=== PATIENT | female | born 1995 | race Caucasian/White ===

== ENCOUNTER 2019-08-30 23:16 | Emergency (ER) | payer OTHER ==
[2019-08-30 23:43] LABS: #Eosinphils 0.1 thou/uL (0.0-0.7); #Lymphocytes 2.4 thou/uL (1.20-3.40); #Monocytes 1.2 thou/uL (0.11-0.59); %Basophils 0.3 % (0.0-1.0); %Lymphocytes 16.2 % (21.0-51.0); %Monocytes 8.1 % (0.0-10.0); %Neutrophils 74.4 % (42.0-75.0); Hemoglobin 13.2 g/dL (12.0-16.0); Mean Corpuscular HGB CONC 34.5 g/dL (32.0-36.0); Mean Corpuscular Hemoglobin 28.8 pg (27.0-31.0); Mean Corpuscular Volume 83.7 fL (78.0-98.0); Mean Platelet Volume 7.1 fL (7.4-10.4); Platelet Count 326 thou/uL (130-400); RBC Distribution Width 11.8 % (11.5-14.5); Red Blood Cell (RBC) Count 4.59 mill/uL (4.20-5.40); White Blood Cell (WBC) Count 14.8 thou/uL (4.8-10.8)
[2019-08-31 01:23] LABS: Bilirubin Negative (Negative); Blood, Urine 1+ (Negative); Clarity Clear (Clear); Glucose, Urine (Dipstick) Normal (Negative); Leukocyte Negative Leu/uL (Negative); Nitrite Negative (Negative); Protein, Urine (Dipstick) Negative (Neg-Trace); RBC/HPF 0-3 HPF (0-3); Squamous Epithelial 0-3 HPF (0-3); Urobilinogen Normal mg/dL (Less than 2); WBC/HPF 0-3 HPF (0-3)
[2019-08-31 01:25] LABS: Bacteria/HPF 1+ HPF (None Seen)
--- NOTE | 2019-08-31 08:05 | ULT ---
Emergent after hours pelvic ultrasound HISTORY: Vaginal bleeding, placenta previa. Patient reports lower abdominal cramping over past few we eks. IMPRESSION: 1. Single intrauterine gestation in transverse lie with head to the maternal right. heart tones are documented with heart rate of 153 bpm. 2. Limited evaluation of the leading edge of the placenta in relation to the internal cervical os. Wh ile there is no evidence of placenta previa, a low-lying placenta is a possibility. Follow-up evaluation is suggested. 3. Oligohydramnios. Amniotic fluid index is significantly decreased at 2.7 cm. 4. Above findings were discussed with Dr. Sweeney by Yi Ritter of direct radiology which was document ed on the direct radiology report. 5. Gestational age by measurement of the biparietal diameter is 17 weeks. 6. Findings are in agreement with the preliminary report by direct radiology.
== END 2019-08-31 01:37 | disposition home or self-care (01) ==
LOC: ERS 23:16
DX: O20.0 Threatened abortion (principal); O99.342 Other mental disorders complicating pregnancy, second trimester; F41.9 Anxiety disorder, unspecified; F32.9 Major depressive disorder, single episode, unspecified; Z3A.16 16 weeks gestation of pregnancy
CPT/HCPCS: 36415; 76856; 81003; 81015; 84702; 85025; 86900; 86901; 93976

== ENCOUNTER 2019-09-01 14:48 | Observation (INO) | payer OTHER ==
[~2019-09-01 14:48] MED LIST: Bupivacaine/Epinephrine 0.25% 30 ML VIAL ONE
[2019-09-01 15:38] VITALS: BMI 30.2
[2019-09-01] MEDS ORDERED: Lactated Ringer's 1,000 ML IV PRN (15:39)
[2019-09-01] MEDS ORDERED: Misoprostol 200 MCG TAB PR PRN (15:39)
[2019-09-01] MEDS ORDERED: NS / Oxytocin 40 units/1000ml 1,000 ML IV PRN (15:39)
[2019-09-01] MEDS ORDERED: hydrALAZINE 20 MG/ML VIAL SLOW IVP PRN (15:39)
[2019-09-01] MEDS ORDERED: Ibuprofen 800 MG TAB PO PRN (15:39)
[2019-09-01] MEDS ORDERED: Promethazine HCl 25 MG/ML VIAL IM PRN (15:39)
[2019-09-01] MEDS ORDERED: HYDROcodone/Acetaminophen 5/325 mg Tablet PO PRN ×2 (15:39)
[2019-09-01] MEDS ORDERED: Methylergonovine 0.2 MG/ML VIAL IM PRN (15:39)
[2019-09-01] MEDS ORDERED: Ondansetron PF 4 MG/2 ML Vial IVP PRN (15:39)
[2019-09-01 17:10] LABS: Hemoglobin 13.1 g/dL (12.0-16.0); Mean Corpuscular HGB CONC 32.6 g/dL (32.0-36.0); Mean Corpuscular Hemoglobin 27.7 pg (27.0-31.0); Mean Corpuscular Volume 84.9 fL (78.0-98.0); Mean Platelet Volume 7.9 fL (7.4-10.4); Platelet Count 350 thou/uL (130-400); RBC Distribution Width 11.9 % (11.5-14.5); Red Blood Cell (RBC) Count 4.73 mill/uL (4.20-5.40); White Blood Cell (WBC) Count 15.7 thou/uL (4.8-10.8)
[2019-09-01 17:36] LABS: Syphilis Antibody Nonreactive (Nonreactive); Syphilis Antibody Index 0.07 S/CO (<1.00 Non-Reactive)
[2019-09-01 17:37] LABS: HBSAg Index 0.15 S/CO (0-0.99); Hep B Surf Ag Non-Reactive S/CO (NonReactive)
--- NOTE | 2019-09-01 19:40 | CON ---
DATE OF CONSULTATION: 09/01/2019 CONSULTING PROVIDER: Barbra Bustillo CNM. CHIEF COMPLAINT: Previable premature rupture of membranes. HISTORY OF PRESENT ILLNESS: This is a 23-year-old G1 who presented to the emergency department a few days ago with vaginal bleeding. She was told that she had low fluid and marginal placenta previa and was instructed to follow up with us in the clinic. In clinic today, she was found to have no fluid on the abdominal ultrasound and again marginal placenta previa was confirmed. She continues to have some slight vaginal bleeding. She was sent over from the clinic for admission for previable premature rupture of membranes. There is cardiac activity present on ultrasound today and the patient denies any significant pain or other complaints at this time. She is having some mild low back pain. REVIEW OF SYSTEMS: Negative for head, eyes, ears, nose, throat, cardiovascular, respiratory, GI, , neuropsych, musculoskeletal, skin, or constitutional symptoms other than mentioned above. PAST MEDICAL HISTORY: None. PAST SURGICAL HISTORY: 1. Rosebud teeth. 2. Anal fissure repair. PSYCHIATRIC HISTORY: Anxiety and depression. SOCIAL HISTORY: Negative for tobacco, alcohol, or drug abuse. ALLERGIES: TESSALON PERLES CAUSES AN ITCHY TONGUE. MEDICATIONS: 1. vitamin. 2. Macrobid for UTI. FAMILY HISTORY: Noncontributory. PHYSICAL EXAMINATION: VITAL SIGNS: Temperature 98.1, pulse 80, respiratory rate 16, blood pressure 124/87. GENERAL: Awake, alert, in no acute distress. CHEST: Nonlabored. ABDOMEN: Soft, nontender to palpation. PELVIC: Deferred. EXTREMITIES: No edema. LABORATORY DATA: Blood type O positive. WBC 15.7, hemoglobin 13.1, hematocrit 40.2, platelets 350,000. ASSESSMENT AND PLAN: A 23-year-old G1 at 16 weeks 6 days with previable premature rupture of membranes and vaginal bleeding with diagnosis of low-lying versus marginal placenta. At this time, there is cardiac activity and the patient is stable. However, given her mildly elevated white count and marginal placenta, she is at risk for infection and hemorrhage and should be monitored closely. The ethics committee will be consulted. We will continue to monitor closely with Barbra Bustillo. Job ID: [id number]
--- NOTE | 2019-09-01 20:56 | PDOC.LDHP ---
Labor and Delivery H&P Chief complaint: other (PPROM at 16.6) HPI: Dee oLra is a 23 y.o at 16.6 days. she was seen today at [facility] for her routine OB visit. At the time she reports that things were not good and two days ago she had been back to the ER for lots of bleeding and cramping. At the ER she was told that she had a symptomatic UTI and given ABX and discharged home. The day she went to the ER, she reports she was haivng back pain, so she took a bath. When she was in the bath she felt a bubble pop and then had so much blood. She was also having cramping at the time. currently she reports some bleeding, but not as much as she was having before. The cramping and bleeding is worse at night. Current gestational age (weeks): 16 (and 6 days) Due date: 02/10/20 Dating criteria: last menstrual period Grav: 1 Para: 0 Current complications: other (Marginal placenta previa) Abnormal US findings: Yes (marginal placental previa (posterior)) Past Medical History: Anxiety Depression anal fissure repair OCD Current medications: pre-joshua vitamins Previous surgical history: other (anal fissure Repair) Allergies/Adverse Reactions: Allergies Allergy/AdvReac Type Severity Reaction Status Date / Time benzonatate Allergy Verified 09/01/19 15:34 [From Satnam Beltran] Social history: none - Physical Exam Vital signs reviewed and normal: yes General: NAD Lungs: nonlabored breathing Abdomen: gravid - OB Labs Blood type: O RH: positive Antibody Screen: negative HIV: negative RPR: negative HEPSAg: negative GBS: unknown Rubella: immune - Assessment Marginal Placenta Previa PPROM at 16.6 - Plan Plan: admit to L&D, informed consent obtained, anesthesia consult for pain management -: OB hospitalist was consulted concerned case Ethics committee consultation Initiated requesting permission for induction given the increased risk of hemorrhage due to previa Member Laura youssef and Nancy De La Torre. Ethic Approval granted to start IOL Dr. Qureshi and I discussed options of expectant management vs. initiating IOL with patient. Risk, benefits, and alternatives discussed with patient. Patient and and discussing and will notify RN of decision. Will start 800mcg of PV cytotec at 0600 and 400mcgs q3hrs thereafter. will wait until day shift due to start IOL due to increased access to anesthesia.
[2019-09-01] MEDS ORDERED: Zolpidem Tartrate 5 MG TAB PO PRN (21:29)
[2019-09-01] MEDS ORDERED: Morphine 2 MG/ML SYRINGE SLOW IVP PRN (21:29)
[2019-09-01] MEDS: Butorphanol Tartrate 1 MG/ML VIAL SLOW IVP PRN (22:04)
[2019-09-02] MEDS: Butorphanol Tartrate 1 MG/ML VIAL SLOW IVP PRN ×4 (01:20→05:54)
[2019-09-02] MEDS ORDERED: Fentanyl 4 mcg/Bup 0.1% Cadd 100 ML ONE (05:48)
[2019-09-02] MEDS ORDERED: Ondansetron PF 4 MG/2 ML Vial IVP PRN (06:29)
[2019-09-02] MEDS ORDERED: Lactated Ringer's 500 ML IV PRN (06:29)
[2019-09-02] MEDS ORDERED: Promethazine HCl 25 MG/ML VIAL IM PRN (06:29)
[2019-09-02] MEDS ORDERED: Acetaminophen 325 MG TAB PO PRN (06:29)
[2019-09-02] MEDS ORDERED: Naloxone HCl 0.4 mg/ml Vial IVP PRN ×2 (06:29)
[2019-09-02] MEDS ORDERED: diphenhydrAMINE 50 MG/ML VIAL IVP PRN (06:29)
[2019-09-02] MEDS ORDERED: EPHEDRINE 25 MG/5 ML SYRINGE SLOW IVP PRN (06:29)
[2019-09-02] MEDS ORDERED: Fentanyl 4 mcg/Bupivacaine 0.1% Cassette 100 ML EPIDURAL SCH (06:30)
[2019-09-02] MEDS ORDERED: Communication Order-Pharmacy FS SCH (06:30)
[2019-09-02] MEDS ORDERED: Misoprostol 100 MCG TAB VAG SCH ×2 (07:00→10:00)
--- NOTE | 2019-09-02 09:46 | PDOC.OPDEL ---
OB Operative/Delivery Note Pre-Delivery Diagnosis: other (2nd trimester inevitable AB.) Procedure/Post Delivery Dx: other (2nd trimester AB) Weeks gestation: 17 Anesthesia: epidural - Additional Findings/Plan Placenta delivered: spontaneous Repaired Obstetrical Laceration: none Estimated blood loss: 815mL Compilations/Other Findings: Patient delivery spontaneously this am at 0730 . Placenta was not delivered at this time. Instructed RN via tiger text to administer 400mcgs of PO cytotec. Placenta was delivered at 0844 Post delivery plan: routine recovery
[2019-09-02] MEDS ORDERED: HYDROcodone/Acetaminophen 5/325 mg Tablet PO PRN ×2 (12:14)
[2019-09-02] MEDS ORDERED: NS / Oxytocin 40 units/1000ml 1,000 ML IV SCH (12:14)
[2019-09-02] MEDS ORDERED: Milk Of Magnesia 30 ML UDCUP PO PRN (12:14)
[2019-09-02] MEDS ORDERED: hydrALAZINE 20 MG/ML VIAL SLOW IVP PRN (12:14)
[2019-09-02] MEDS ORDERED: Bisacodyl 10 MG SUPP PR PRN (12:14)
[2019-09-02] MEDS ORDERED: Methylergonovine 0.2 MG/ML VIAL IM PRN (12:14)
[2019-09-02] MEDS: Ibuprofen 800 MG TAB PO SCH ×2 (13:52→21:03)
[2019-09-02] MEDS: Ferrous Sulfate 325 MG TAB PO SCH (17:55)
[2019-09-02] MEDS: Docusate Calcium (SURFAK) 240 MG CAP PO SCH ×2 (21:03)
[2019-09-03] MEDS: Ibuprofen 800 MG TAB PO SCH (05:08)
[2019-09-03] MEDS: Ferrous Sulfate 325 MG TAB PO SCH (08:13)
[2019-09-03] MEDS ORDERED: Adacel (T-DAP) 0.5 ML SYRINGE IM ONE (09:00)
[2019-09-03] MEDS ORDERED: Prenatal Vitamin 1 TAB PO SCH (09:00)
[2019-09-03] MEDS: Docusate Calcium (SURFAK) 240 MG CAP PO SCH (09:36)
[2019-09-03 10:42] VITALS: BP 108/62; TEMP 98.2
--- NOTE | 2019-09-03 12:05 | PDOC.PP ---
Post Progress Note Post Day #: 1 Subjective: Patient is doing well. She is sad and the physical pain is the reminder. PO intake tolerated: yes Flatus: yes Ambulation: yes Vital Signs (12 hours) Temp Pulse Resp BP Pulse Ox 09/03/19 08:00 98.2 F 80 16 108/62 99 09/03/19 05:00 98.4 F 75 18 110/59 L 09/03/19 01:00 97.9 F 77 18 96/54 L Weight Weight 193 lb - Physical Examination General: NAD Respiratory: non-labored breathing Abdominal: lochia (minimal), appropriately TTP Skin: no rash Neurological: no gross focal deficits Psychiatric: A&Ox3, normal affect Result Diagrams: 09/01/19 16:50 Additional Labs: Post Labs Blood Type O POSITIVE 09/01/19 16:50 Hep Bs Antigen Non-Reactive S/CO (NonReactive) 09/01/19 16:50 (1) Second trimester Code(s): Z33.2 - ENCOUNTER FOR ELECTIVE TERMINATION OF Status: Acute - Assessment/Plan A: [id number] AB at `17 weeks P: discharge home. virtual visit in 1-2 weeks. 6 weeks PP visit.
== END 2019-09-03 13:15 | disposition home or self-care (01) ==
LOC: L&D/OP 14:48 → L&D 16:59 → INTOOBSV 16:59 → L&D 09-02 10:08 → 3SW 09-02 13:21
PROVIDERS: ADMIT Student in an Organized Health Care Education/Training Program; ATTEND Student in an Organized Health Care Education/Training Program
DX: O03.9 Complete or unspecified spontaneous abortion without complication (principal); O42.012 Preterm premature rupture of membranes, onset of labor within 24 hours of rupture, second trimester; O44.32 Partial placenta previa with hemorrhage, second trimester; O41.1220 Chorioamnionitis, second trimester, not applicable or unspecified; O23.42 Unspecified infection of urinary tract in pregnancy, second trimester; Z3A.16 16 weeks gestation of pregnancy; Z88.8 Allergy status to other drugs, medicaments and biological substances
CPT/HCPCS: 36415; 51702; 76856; 81003; 81015; 84702; 85025; 85027; 86780; 86850; 86900; 86901; 87340; 88300; 88305; 93976; J0595; J2405